=== PATIENT | female | born 1955 | race Hispanic/Latino ===

== ENCOUNTER 2019-08-12 14:49 | Emergency (ER) | payer OTHER ==
[2019-08-12] MEDS ORDERED: AZITHROMYCIN 250 MG TAB ONE (15:37)
[2019-08-12 15:53] LABS: Absolute Lymphocytes (CBC) 1.7 K/uL (0.7-4.9); Basophils % 0.6 % (0-1.3); Hematocrit 39.3 % (36.0-45.0); Lymphocytes % 16.7 % (15.3-44.8); MPV 9.4 fL (7.6-11.3); RBC Red Blood Cell Count 4.67 M/uL (3.86-4.86)
[2019-08-12 16:04] LABS: BUN Blood Urea Nitrogen 12 mg/dL (7-18); Bicarbonate 27 mmol/L (21-32); Glucose Level 92 mg/dL (74-106); Potassium 3.4 mmol/L (3.5-5.1); Sodium Level 141 mmol/L (136-145); Troponin (Emerg Dept Use Only) < 0.02 ng/mL (0.0-0.045)
--- NOTE | 2019-08-12 16:23 | ER ---
Nurse's Notes [facility] Name: Mindy Burdick Age: 64 yrs Sex: Female : 1955 Arrival Date: 08/12/2019 Time: 14:51 Bed 6 Private MD: Diagnosis: Acute bronchitis Presentation: 08/11 15:00 Chief complaint: Patient's son or daughter states: cough X 3 days, intermittent SOB, iw fever on that is resolved, +headache. Coronavirus screen: The patient has NOT traveled to a country currently being monitored by the [facility] within the last 14 days. Proceed with normal triage procedures. The patient has NOT had contact with any known and/or suspected case of coronavirus. Proceed with normal triage procedures. Ebola Screen: Patient negative for fever greater than or equal to 101.5 degrees Fahrenheit, and additional compatible Ebola Virus Disease symptoms Patient denies exposure to infectious person. Patient denies travel to an Ebola-affected area in the 21 days before illness onset. No symptoms or risks identified at this time. Initial Sepsis Screen: Does the patient meet any 2 criteria? No. Patient's initial sepsis screen is negative. Does the patient have a suspected source of infection? No. Patient's initial sepsis screen is negative. Risk Assessment: Do you want to hurt yourself or someone else? Patient reports no desire to harm self or others. 15:00 Method Of Arrival: Ambulatory iw 15:00 Acuity: MCKENZIE 3 iw Triage Assessment: 15:05 General: Appears in no apparent distress. comfortable, Behavior is cooperative, bp appropriate for age, anxious. Pain: Denies pain. EENT: No deficits noted. Neuro: No deficits noted. Cardiovascular: Rhythm is sinus rhythm. Respiratory: Reports shortness of breath cough that is Onset: The symptoms/episode began/occurred at an unknown time. the patient has mild shortness of breath. GI: No signs and/or symptoms were reported involving the gastrointestinal system. : No signs and/or symptoms were reported regarding the genitourinary system. Derm: No deficits noted. Musculoskeletal: No deficits noted. Historical: - Allergies: 15:04 Bactrim; iw - Home Meds: 15:04 telmisartan 80 mg oral tab 1 tab once daily [Active]; alendronate 70 mg/75 mL oral soln iw 75 mL once wkly [Active]; simvastatin 40 mg Oral tab 1 tab once daily [Active]; aspirin 81 mg Oral TbEC 1 tab once daily [Active]; - PMHx: 15:04 Hyperlipidemia; Hypertension; Osteoporosis; colon cancer; iw - PSHx: 15:04 colon resection; surgery after stroke; iw - Immunization history:: Adult Immunizations not up to date. - Social history:: Smoking status: Patient denies any tobacco usage or history of. Patient/guardian denies using alcohol, street drugs, The patient lives with family. - Family history:: not pertinent. Screenin:05 Abuse screen: Denies threats or abuse. Denies injuries from another. Nutritional bp screening: No deficits noted. Tuberculosis screening: No symptoms or risk factors identified. Fall Risk None identified. Assessment: 15:05 General: SEE TRIAGE NOTE. Cardiovascular: Patient's skin is warm and dry. Rhythm is bp sinus rhythm. Respiratory: Airway is patent Respiratory effort is even, unlabored, Breath sounds are clear bilaterally. Vital Signs: 15:04 BP 137 / 80; Pulse 87; Resp 20 S; Temp 97.3; Pulse Ox 98% on R/A; Weight 95.25 kg; iw ED Course: 14:51 Patient arrived in ED. ag5 15:02 Triage completed. iw 15:04 Arm band placed on. iw 15:05 Patient has correct armband on for positive identification. Bed in low position. Call bp light in reach. Side rails up X2. 15:06 Viktoriya Webster MD is Attending Physician. ma2 15:10 Guillermo Mcgill, RN is Primary Nurse. bp 15:34 Inserted saline lock: 20 gauge in right antecubital area, using aseptic technique. hb Blood collected. 16:06 XRAY CXR (1 view) In Process Unspecified. EDMS 16:43 No provider procedures requiring assistance completed. IV discontinued, intact, hb bleeding controlled, No redness/swelling at site. Pressure dressing applied. Administered Medications: 15:30 Drug: AZITHromycin 500 mg Route: PO; bp Outcome: 16:22 Discharge ordered by . ma2 16:43 Discharged to home ambulatory, with family. hb 16:43 Condition: stable 16:43 Discharge instructions given to patient, family, Instructed on discharge instructions, follow up and referral plans. medication usage, Demonstrated understanding of instructions, follow-up care, medications, Prescriptions given X 2. 16:43 Patient left the ED. hb Signatures: Dispatcher [employer] Ruthy Humphreys RN RN iw Baxter, Heather, RN RN hb Peltier, Brian, RN RN bp Alzahri, Mohammad, MD MD ma2 Sylvain Felder 5
--- NOTE | 2019-08-12 16:23 | EDPHYS ---
Physician Documentation [facility] Name: Mindy Burdick Age: 64 yrs Sex: Female : 1955 Arrival Date: 08/12/2019 Time: 14:51 Bed 6 Private MD: ED Physician Viktoriya Webster HPI: 08/11 15:24 This 64 yrs old Female presents to ER via Ambulatory with complaints of Cough, ma2 Shortness Of Breath. 15:24 Onset: The symptoms/episode began/occurred gradually, 1 week(s) ago. Severity of ma2 symptoms: At their worst the symptoms were mild, in the emergency department the symptoms are unchanged. Associated signs and symptoms: Pertinent negatives:. The patient has not experienced similar symptoms in the past. Historical: - Allergies: 15:04 Bactrim; iw - Home Meds: 15:04 telmisartan 80 mg oral tab 1 tab once daily [Active]; alendronate 70 mg/75 mL oral soln iw 75 mL once wkly [Active]; simvastatin 40 mg Oral tab 1 tab once daily [Active]; aspirin 81 mg Oral TbEC 1 tab once daily [Active]; - PMHx: 15:04 Hyperlipidemia; Hypertension; Osteoporosis; colon cancer; iw - PSHx: 15:04 colon resection; surgery after stroke; iw - Immunization history:: Adult Immunizations not up to date. - Social history:: Smoking status: Patient denies any tobacco usage or history of. Patient/guardian denies using alcohol, street drugs, The patient lives with family. - Family history:: not pertinent. ROS: 15:24 Constitutional: Negative for fever, chills, and weight loss. ma2 15:24 All other systems are negative. Exam: 15:24 Constitutional: This is a well developed, well nourished patient who is awake, alert, ma2 and in no acute distress. Chest/axilla: Normal chest wall appearance and motion. Nontender with no deformity. No lesions are appreciated. Cardiovascular: Regular rate and rhythm with a normal S1 and S2. No gallops, murmurs, or rubs. Normal PMI, no JVD. No pulse deficits. Respiratory: Lungs have equal breath sounds bilaterally, clear to auscultation and percussion. No rales, rhonchi or wheezes noted. No increased work of breathing, no retractions or nasal flaring. Abdomen/GI: Soft, non-tender, with normal bowel sounds. No distension or tympany. No guarding or rebound. No evidence of tenderness throughout. Vital Signs: 15:04 BP 137 / 80; Pulse 87; Resp 20 S; Temp 97.3; Pulse Ox 98% on R/A; Weight 95.25 kg; iw MDM: 15:07 Patient medically screened. [facility] 15:24 Differential Diagnosis: Bronchitis Influenza Upper Respiratory Infection Sinusitis ma2 Pharyngitis. Data reviewed: vital signs, nurses notes. Counseling: I had a detailed discussion with the patient and/or guardian regarding: the historical points, exam findings, and any diagnostic results supporting the discharge/admit diagnosis, the presence of at least one elevated blood pressure reading (>120/80) during this emergency department visit. Response to treatment: the patient's symptoms have markedly improved after treatment. 08/11 15:23 Order name: BMP; Complete Time: 16:22 [facility] 08/11 15:23 Order name: CBC with Diff; Complete Time: 16:22 [facility] 08/11 15:23 Order name: Troponin (emerg Dept Use Only); Complete Time: 16:22 [facility] 08/11 15:23 Order name: Flu; Complete Time: 16:22 [facility] 08/11 15:23 Order name: Strep; Complete Time: 16:22 [facility] 08/11 16:02 Order name: Throat Culture [facility] 08/11 15:23 Order name: XRAY CXR (1 view) pa2 Administered Medications: 15:30 Drug: AZITHromycin 500 mg Route: PO; bp Disposition: 08/12/19 16:22 Discharged to Home. Impression: Acute bronchitis. - Condition is Stable. - Discharge Instructions: Acute Bronchitis, Adult. - Prescriptions for Zithromax Z- Benjamin 250 mg Oral Tablet - take 1 tablet by ORAL route as directed for 5 days Day 1 - take two (2) tablets one time. Day 2, 3, 4 , 5 take one (1) tablet once daily.; 6 tablet. Medrol (Benjamin) 4 mg Oral Tablets, Dose Pack - take 1 tablet by ORAL route as directed - follow package instructions; 1 packet. - Medication Reconciliation Form, Thank You Letter, Antibiotic Education, Prescription Opioid Use form. - Follow up: Private Physician; When: Tomorrow; Reason: If symptoms return, Continuance of care. Signatures: Dispatcher [employer] Ruthy Humphreys, RN Octavia Alfred RN RN Guillermo Rothman RN RN bp Alzahri, Mohammad, MD MD ma2 Corrections: (The following items were deleted from the chart) 16:43 16:22 08/12/2019 16:22 Discharged to Home. Impression: Acute bronchitis. Condition is hb Stable. Prescriptions for Zithromax Z-Benjamin 250 mg Oral Tablet - take 1 tablet by ORAL route as directed for 5 days Day 1 - take two (2) tablets one time. Day 2, 3, 4 , 5 take one (1) tablet once daily.; 6 tablet, Medrol (Benjamin) 4 mg Oral Tablets, Dose Pack - take 1 tablet by ORAL route as directed - follow package instructions; 1 packet. and Forms are Medication Reconciliation Form, Thank You Letter, Antibiotic Education, Prescription Opioid Use. Follow up: Private Physician; When: Tomorrow; Reason: If symptoms return, Continuance of care. ma2
--- NOTE | 2019-08-12 16:31 | RAD REPORT ---
EXAM DESCRIPTION: RAD - Chest Single View - 08/12/2019 4:04 pm CLINICAL HISTORY: CONGESTION, cough, intermittent shortness of breath and fever COMPARISON: None TECHNIQUE: AP portable chest image was obtained 08/12/2019 4:04 pm . FINDINGS: No focal lung parenchymal process. Portable technique and body habitus accentuate lung mar kings. Heart and vasculature are normal. No measurable pleural effusion and no pneumothorax. No acute bony abnormality seen. No acute aortic findings suspected. IMPRESSION: No acute cardiopulmonary process.
[2019-08-12 16:50] VITALS: BP 137/80; TEMP 97.3; O2SAT 98
== END 2019-08-12 16:43 | disposition home or self-care (01) ==
LOC: ER 14:49
DX: J20.9 Acute bronchitis, unspecified (principal); I10 Essential (primary) hypertension; E78.5 Hyperlipidemia, unspecified; Z85.038 Personal history of other malignant neoplasm of large intestine; Z79.82 Long term (current) use of aspirin; Z88.1 Allergy status to other antibiotic agents
CPT/HCPCS: 36415; 71045; 80048; 84484; 85025; 87070; 87081; 87804; 99284